=== PATIENT | female | born 1955 | race Caucasian/White ===

== ENCOUNTER 2018-03-07 11:13 | Inpatient (IN) | payer MEDICARE, OTHER ==
[2018-03-07 12:34] LABS: ADD MAN DIFF? NO
[2018-03-07] MEDS: ONDANSETRON 4 MG INJ IV ×2 (12:34→14:30)
[2018-03-07] MEDS: SOD CHLORIDE 0.9% 1,000 ML IV ×2 (12:35→16:41)
[2018-03-07] MEDS: HYDROmorphONE 1 MG/ML SYG IV ×2 (12:35→14:30)
[2018-03-07 12:38] LABS: BASOPHIL # 0.1 10^3/ul (0.0-0.1); BASOPHILS % 0.5 % (0.0-2.0); EOSINOPHILS # 0.2 10^3/ul (0.0-0.5); EOSINOPHILS % 1.7 % (0.0-7.0); HEMATOCRIT 34.7 % (37.0-47.0); HEMOGLOBIN 10.6 g/dl (12.0-16.0); LYMPHOCYTES # 2.2 10^3/ul (0.8-2.9); LYMPHOCYTES % 22.6 % (15.0-51.0); MEAN CORPUSCULAR HEMOGLOBIN 29.5 pg (29.0-33.0); MEAN CORPUSCULAR HGB CONC 30.5 g/dl (32.0-37.0); MEAN CORPUSCULAR VOLUME 96.7 fl (82.0-101.0); MEAN PLATELET VOLUME 9.6 fl (7.4-10.4); MONOCYTE # 0.8 10^3/ul (0.3-0.9); MONOCYTES % 8.1 % (0.0-11.0); NEUTROPHIL # 6.3 10^3/ul (1.6-7.5); NEUTROPHILS % 64.7 % (39.0-77.0); PLATELET COUNT 395 10^3/UL (140-415); RED BLOOD COUNT 3.59 10^6/ul (4.20-5.40); RED CELL DISTRIBUTION WIDTH 13.7 % (11.5-14.5)
[2018-03-07 12:38] LABS: WHITE BLOOD COUNT 9.7 10^3/ul (4.8-10.8)
[2018-03-07 13:11] LABS: ALANINE AMINOTRANSFERASE 45 IU/L (13-69); ALBUMIN 3.7 g/dl (3.3-4.9); ALBUMIN/GLOBULIN RATIO 0.92; ALKALINE PHOSPHATASE 139 IU/L (42-121); ASPARTATE AMINO TRANSFERASE 58 IU/L (15-46); BILIRUBIN,INDIRECT 0.2 mg/dl (0-1.1); BILIRUBIN,TOTAL 0.2 mg/dl (0.2-1.3); BLOOD UREA NITROGEN 15 mg/dl (7-20); CALCIUM 9.5 mg/dl (8.4-10.2); CARBON DIOXIDE 21 mmol/L (21-31); CHLORIDE 104 mmol/L (97-110); CREATININE 3.92 mg/dl (0.44-1.00); GLUCOSE 68 mg/dl (70-220); POTASSIUM 4.3 mmol/L (3.5-5.1); SODIUM 140 mmol/L (135-144); TOTAL PROTEIN 7.7 g/dl (6.1-8.1)
[2018-03-07] MEDS ORDERED: ACETAMINOPHEN 325 MG TAB PO (14:00)
[2018-03-07] MEDS ORDERED: ONDANSETRON 4 MG INJ IV ×2 (14:00→15:30)
[2018-03-07 14:18] LABS: TROPONIN-I < 0.012 ng/ml (0.000-0.120)
[2018-03-07 14:21] LABS: B-TYPE NATRIURETIC PEPTIDE 3820 PG/ML (0-125)
[2018-03-07] MEDS: HYDROCODONE/APAP (10/325) TAB PO (14:38)
[2018-03-07] MEDS ORDERED: NACL 0.9% 3 ML SYG IV (15:30)
[2018-03-07] MEDS ORDERED: DOCUSATE SODIUM 100 MG CAP PO (15:30)
[2018-03-07] MEDS ORDERED: MAGNESIUM HYDROXIDE 30ML CUP PO (15:30)
[2018-03-07] MEDS ORDERED: LORAZEPAM 1 MG TAB PO (15:30)
[2018-03-07] MEDS: ALBUTEROL HFA 8 GM INHALER INH ×2 (17:00→21:52)
[2018-03-07] MEDS: GABAPENTIN 400 MG CAP PO ×2 (18:27→20:35)
[2018-03-07 20:13] LABS: ADD UMIC YES; UR AMORPHOUS CRYSTAL FEW /HPF (NONE SEEN); UR ASCORBIC ACID NEGATIVE (NEGATIVE); UR BILIRUBIN (Dip) NEGATIVE (NEGATIVE); UR BLOOD (Dip) NEGATIVE (NEGATIVE); UR CLARITY CLOUDY (CLEAR); UR COLOR YELLOW (YELLOW); UR GLUCOSE (Dip) NEGATIVE (NEGATIVE); UR KETONES (Dip) NEGATIVE (NEGATIVE); UR LEUKOCYTE ESTERASE (Dip) NEGATIVE Leu/ul (NEGATIVE); UR MUCUS FEW /HPF (NONE SEEN); UR NITRITE (Dip) NEGATIVE (NEGATIVE); UR RBC 3 /HPF (0-5); UR SPECIFIC GRAVITY (Dip) 1.011 (1.003-1.030); UR TOTAL PROTEIN (Dip) NEGATIVE (NEGATIVE); UR UROBILINOGEN (Dip) NEGATIVE (NEGATIVE); UR WBC 4 /HPF (0-5)
[2018-03-07] MEDS: ATORVASTATIN 40 MG TAB PO (20:36)
[2018-03-07] MEDS: HEPARIN 5,000 UNIT/0.5 ML VIAL SC (20:40)
[2018-03-07] MEDS: HYDROCODONE/APAP (5/325) TAB PO (20:48)
[2018-03-08] MEDS: ALBUTEROL HFA 8 GM INHALER INH ×3 (00:15→21:29)
[2018-03-08] MEDS: SOD CHLORIDE 0.9% 1,000 ML IV ×3 (03:11→16:28)
[2018-03-08] MEDS: PANTOPRAZOLE (EC) 40 MG TAB PO (05:58)
[2018-03-08] MEDS: HYDROCODONE/APAP (5/325) TAB PO ×3 (07:22→21:59)
[2018-03-08 08:54] LABS: ADD MAN DIFF? NO
[2018-03-08 08:57] LABS: BASOPHILS % 0.6 % (0.0-2.0); EOSINOPHILS # 0.3 10^3/ul (0.0-0.5); EOSINOPHILS % 4.8 % (0.0-7.0); HEMATOCRIT 28.9 % (37.0-47.0); HEMOGLOBIN 8.7 g/dl (12.0-16.0); LYMPHOCYTES # 2.7 10^3/ul (0.8-2.9); LYMPHOCYTES % 39.4 % (15.0-51.0); MEAN CORPUSCULAR HEMOGLOBIN 29.2 pg (29.0-33.0); MEAN CORPUSCULAR HGB CONC 30.1 g/dl (32.0-37.0); MEAN PLATELET VOLUME 9.9 fl (7.4-10.4); MONOCYTE # 0.8 10^3/ul (0.3-0.9); MONOCYTES % 10.9 % (0.0-11.0); NEUTROPHIL # 2.9 10^3/ul (1.6-7.5); NEUTROPHILS % 41.8 % (39.0-77.0); PLATELET COUNT 344 10^3/UL (140-415); RED BLOOD COUNT 2.98 10^6/ul (4.20-5.40); RED CELL DISTRIBUTION WIDTH 14.3 % (11.5-14.5)
[2018-03-08 08:57] LABS: WHITE BLOOD COUNT 6.9 10^3/ul (4.8-10.8)
[2018-03-08 09:10] LABS: ANION GAP 15 (5-13)
[2018-03-08 09:14] LABS: HEMOGLOBIN A1C 7.5 % (0-5.9)
[2018-03-08 09:23] LABS: ALANINE AMINOTRANSFERASE 46 IU/L (13-69); ALBUMIN 2.9 g/dl (3.3-4.9); ALKALINE PHOSPHATASE 100 IU/L (42-121); ANION GAP 9 (5-13); ASPARTATE AMINO TRANSFERASE 50 IU/L (15-46); BILIRUBIN,INDIRECT 0.2 mg/dl (0-1.1); BILIRUBIN,TOTAL 0.2 mg/dl (0.2-1.3); BLOOD UREA NITROGEN 19 mg/dl (7-20); CALCIUM 8.3 mg/dl (8.4-10.2); CARBON DIOXIDE 24 mmol/L (21-31); CHLORIDE 106 mmol/L (97-110); CREATININE 3.97 mg/dl (0.44-1.00); GLUCOSE 98 mg/dl (70-220); MAGNESIUM 1.9 mg/dl (1.7-2.5); POTASSIUM 4.5 mmol/L (3.5-5.1); SODIUM 139 mmol/L (135-144); TOTAL PROTEIN 6.1 g/dl (6.1-8.1)
[2018-03-08] MEDS: HEPARIN 5,000 UNIT/0.5 ML VIAL SC (09:43)
[2018-03-08] MEDS: GABAPENTIN 400 MG CAP PO ×4 (09:45→21:30)
[2018-03-08] MEDS: METOPROLOL (XL) 25 MG TAB PO (09:49)
[2018-03-08] MEDS: DONEPEZIL 10 MG TAB PO (09:50)
[2018-03-08] MEDS: morphine 2 MG INJ IV (09:50)
[2018-03-08 16:47] LABS: ADD UMIC NO; UR ASCORBIC ACID NEGATIVE (NEGATIVE); UR BACTERIA FEW /HPF (NONE SEEN); UR BILIRUBIN (Dip) NEGATIVE (NEGATIVE); UR BLOOD (Dip) NEGATIVE (NEGATIVE); UR CLARITY SLIGHTLY CLOUDY (CLEAR); UR COLOR YELLOW (YELLOW); UR GLUCOSE (Dip) NEGATIVE (NEGATIVE); UR KETONES (Dip) NEGATIVE (NEGATIVE); UR LEUKOCYTE ESTERASE (Dip) NEGATIVE Leu/ul (NEGATIVE); UR MUCUS FEW /HPF (NONE SEEN); UR NITRITE (Dip) NEGATIVE (NEGATIVE); UR RBC 1 /HPF (0-5); UR SPECIFIC GRAVITY (Dip) 1.013 (1.003-1.030); UR SQUAMOUS EPITHELIAL CELL FEW /HPF (FEW); UR TOTAL PROTEIN (Dip) NEGATIVE (NEGATIVE); UR UROBILINOGEN (Dip) NEGATIVE (NEGATIVE); UR WBC 4 /HPF (0-5)
[2018-03-08 16:52] LABS: CREATININE,URINE RANDOM 141.62 mg/dl (20-320)
[2018-03-08 16:52] LABS: SODIUM,URINE RANDOM 82 mmol/L (30-90)
[2018-03-08 18:54] LABS: CREATINE KINASE 71 IU/L (23-200)
[2018-03-08] MEDS ORDERED: HEPARIN 5,000 UNIT/0.5 ML VIAL (20:55)
[2018-03-08] MEDS: ATORVASTATIN 40 MG TAB PO (21:29)
[2018-03-08] MEDS: HEPARIN SODIUM 5,000 UNIT/ML VIAL SC (21:34)
[2018-03-09] MEDS: SOD CHLORIDE 0.9% 1,000 ML IV ×4 (00:36→20:31)
[2018-03-09] MEDS: ALBUTEROL HFA 8 GM INHALER INH ×6 (01:54→20:25)
[2018-03-09] MEDS: PANTOPRAZOLE (EC) 40 MG TAB PO (05:36)
[2018-03-09] MEDS: HYDROCODONE/APAP (5/325) TAB PO ×3 (05:37→20:28)
[2018-03-09 05:46] LABS: ADD MAN DIFF? NO
[2018-03-09 05:54] LABS: WHITE BLOOD COUNT 6.8 10^3/ul (4.8-10.8)
[2018-03-09 05:54] LABS: BASOPHIL # 0.1 10^3/ul (0.0-0.1); BASOPHILS % 0.7 % (0.0-2.0); EOSINOPHILS # 0.4 10^3/ul (0.0-0.5); EOSINOPHILS % 5.9 % (0.0-7.0); HEMATOCRIT 29.2 % (37.0-47.0); HEMOGLOBIN 8.8 g/dl (12.0-16.0); LYMPHOCYTES # 2.4 10^3/ul (0.8-2.9); LYMPHOCYTES % 35.6 % (15.0-51.0); MEAN CORPUSCULAR HGB CONC 30.1 g/dl (32.0-37.0); MEAN CORPUSCULAR VOLUME 96.4 fl (82.0-101.0); MEAN PLATELET VOLUME 9.9 fl (7.4-10.4); MONOCYTE # 0.5 10^3/ul (0.3-0.9); NEUTROPHIL # 3.2 10^3/ul (1.6-7.5); NEUTROPHILS % 47.4 % (39.0-77.0); PLATELET COUNT 350 10^3/UL (140-415); RED BLOOD COUNT 3.03 10^6/ul (4.20-5.40); RED CELL DISTRIBUTION WIDTH 14.1 % (11.5-14.5)
[2018-03-09 06:20] LABS: ANION GAP 9 (5-13); BLOOD UREA NITROGEN 23 mg/dl (7-20); CALCIUM 8.5 mg/dl (8.4-10.2); CARBON DIOXIDE 24 mmol/L (21-31); CHLORIDE 106 mmol/L (97-110); CREATININE 2.81 mg/dl (0.44-1.00); GLUCOSE 166 mg/dl (70-220); PHOSPHORUS 4.8 mg/dl (2.5-4.9); POTASSIUM 4.7 mmol/L (3.5-5.1); SODIUM 139 mmol/L (135-144)
[2018-03-09] MEDS ORDERED: HEPARIN 5,000 UNIT/0.5 ML VIAL ×2 (09:15→20:20)
[2018-03-09] MEDS: morphine 2 MG INJ IV ×2 (09:34→17:05)
[2018-03-09] MEDS: DONEPEZIL 10 MG TAB PO (09:43)
[2018-03-09] MEDS: GABAPENTIN 400 MG CAP PO ×4 (09:43→20:28)
[2018-03-09] MEDS: METOPROLOL (XL) 25 MG TAB PO (09:44)
[2018-03-09] MEDS: HEPARIN SODIUM 5,000 UNIT/ML VIAL SC ×2 (09:49→20:34)
[2018-03-09] MEDS ORDERED: GLUCOSE GEL 15 GRAM TUBE BUCCAL (13:30)
[2018-03-09] MEDS ORDERED: GLUCAGON 1 MG INJ IM (13:30)
[2018-03-09] MEDS ORDERED: DEXTROSE 50% 50 ML SYRINGE IV ×2 (13:30)
[2018-03-09] MEDS ORDERED: GLUCOSE GEL 15 GRAM TUBE PO ×2 (13:30)
[2018-03-09 13:32] LABS: OCCULT BLOOD STOOL NEGATIVE (NEGATIVE)
[2018-03-09] MEDS: INSULIN ASPART [NOVOLOG] 3 ML PEN SC ×2 (17:47→20:36)
[2018-03-09] MEDS: ATORVASTATIN 40 MG TAB PO (20:28)
[2018-03-10] MEDS: ALBUTEROL HFA 8 GM INHALER INH ×6 (00:56→20:17)
[2018-03-10] MEDS: morphine 2 MG INJ IV ×4 (00:59→22:18)
[2018-03-10] MEDS: ACCU-CHEK XX (02:00)
[2018-03-10] MEDS: HYDROCODONE/APAP (5/325) TAB PO ×2 (02:42→11:48)
[2018-03-10] MEDS: ZOLPIDEM 5 MG TAB PO (02:44)
[2018-03-10] MEDS: PANTOPRAZOLE (EC) 40 MG TAB PO (06:09)
[2018-03-10 06:11] LABS: ADD MAN DIFF? NO
[2018-03-10 06:15] LABS: BASOPHILS % 0.6 % (0.0-2.0); EOSINOPHILS # 0.3 10^3/ul (0.0-0.5); EOSINOPHILS % 5.3 % (0.0-7.0); HEMATOCRIT 28.3 % (37.0-47.0); HEMOGLOBIN 8.6 g/dl (12.0-16.0); LYMPHOCYTES # 2.5 10^3/ul (0.8-2.9); LYMPHOCYTES % 40.1 % (15.0-51.0); MEAN CORPUSCULAR HEMOGLOBIN 29.2 pg (29.0-33.0); MEAN CORPUSCULAR HGB CONC 30.4 g/dl (32.0-37.0); MEAN CORPUSCULAR VOLUME 95.9 fl (82.0-101.0); MEAN PLATELET VOLUME 9.7 fl (7.4-10.4); MONOCYTE # 0.7 10^3/ul (0.3-0.9); MONOCYTES % 10.7 % (0.0-11.0); NEUTROPHIL # 2.6 10^3/ul (1.6-7.5); NEUTROPHILS % 41.7 % (39.0-77.0); PLATELET COUNT 354 10^3/UL (140-415); RED BLOOD COUNT 2.95 10^6/ul (4.20-5.40); RED CELL DISTRIBUTION WIDTH 13.7 % (11.5-14.5)
[2018-03-10 06:15] LABS: WHITE BLOOD COUNT 6.3 10^3/ul (4.8-10.8)
[2018-03-10 06:30] LABS: ANION GAP 2 (5-13); BLOOD UREA NITROGEN 17 mg/dl (7-20); CALCIUM 8.7 mg/dl (8.4-10.2); CARBON DIOXIDE 29 mmol/L (21-31); CHLORIDE 107 mmol/L (97-110); CREATININE 1.46 mg/dl (0.44-1.00); GLUCOSE 177 mg/dl (70-220); MAGNESIUM 1.6 mg/dl (1.7-2.5); PHOSPHORUS 3.3 mg/dl (2.5-4.9); POTASSIUM 5.1 mmol/L (3.5-5.1); SODIUM 138 mmol/L (135-144)
[2018-03-10] MEDS ORDERED: HEPARIN 5,000 UNIT/0.5 ML VIAL ×2 (08:40→20:01)
[2018-03-10] MEDS: METOPROLOL (XL) 25 MG TAB PO (08:46)
[2018-03-10] MEDS: DONEPEZIL 10 MG TAB PO (08:46)
[2018-03-10] MEDS: GABAPENTIN 400 MG CAP PO ×4 (08:46→20:17)
[2018-03-10] MEDS: HEPARIN SODIUM 5,000 UNIT/ML VIAL SC ×2 (08:48→20:27)
[2018-03-10] MEDS: INSULIN ASPART [NOVOLOG] 3 ML PEN SC ×4 (08:48→20:27)
[2018-03-10] MEDS ORDERED: MAGNESIUM SULFATE 2 GM/50 ML 50 ML IVPB (09:00)
[2018-03-10] MEDS: MAGNESIUM SULFATE 2 GM/50 ML 50 ML IVPB (11:17)
[2018-03-10] MEDS: SOD CHLORIDE 0.9% 1,000 ML IV ×2 (13:46→19:10)
[2018-03-10] MEDS: TRIAMCINOLONE ACET 0.1% 15 GM CR TOP ×2 (15:10→20:16)
[2018-03-10] MEDS: ACETAMINOPHEN 325 MG TAB PO (15:40)
[2018-03-10] MEDS: ATORVASTATIN 40 MG TAB PO (20:17)
[2018-03-10] MEDS: INSULIN GLARGINE [LANTus] (100 UNITS/ML) SYG SC (20:28)
[2018-03-11] MEDS: ALBUTEROL HFA 8 GM INHALER INH ×6 (01:19→21:13)
[2018-03-11] MEDS: ACCU-CHEK XX (01:25)
[2018-03-11] MEDS: ZOLPIDEM 5 MG TAB PO (02:16)
[2018-03-11] MEDS: morphine 2 MG INJ IV ×2 (04:31→21:18)
[2018-03-11] MEDS: PANTOPRAZOLE (EC) 40 MG TAB PO (05:21)
[2018-03-11 06:08] LABS: ADD MAN DIFF? NO
[2018-03-11 07:01] LABS: ANION GAP 10 (5-13); BLOOD UREA NITROGEN 14 mg/dl (7-20); CALCIUM 9.1 mg/dl (8.4-10.2); CARBON DIOXIDE 23 mmol/L (21-31); CHLORIDE 104 mmol/L (97-110); GLUCOSE 244 mg/dl (70-220); MAGNESIUM 1.8 mg/dl (1.7-2.5); PHOSPHORUS 3.6 mg/dl (2.5-4.9); POTASSIUM 5.5 mmol/L (3.5-5.1); SODIUM 137 mmol/L (135-144)
[2018-03-11 08:23] LABS: BASOPHIL # 0.1 10^3/ul (0.0-0.1); BASOPHILS % 0.7 % (0.0-2.0); EOSINOPHILS # 0.4 10^3/ul (0.0-0.5); EOSINOPHILS % 4.7 % (0.0-7.0); HEMATOCRIT 29.7 % (37.0-47.0); HEMOGLOBIN 9.2 g/dl (12.0-16.0); LYMPHOCYTES # 2.5 10^3/ul (0.8-2.9); LYMPHOCYTES % 32.2 % (15.0-51.0); MEAN CORPUSCULAR HEMOGLOBIN 29.4 pg (29.0-33.0); MEAN CORPUSCULAR VOLUME 94.9 fl (82.0-101.0); MEAN PLATELET VOLUME 9.8 fl (7.4-10.4); MONOCYTE # 0.7 10^3/ul (0.3-0.9); MONOCYTES % 8.5 % (0.0-11.0); NEUTROPHILS % 52.7 % (39.0-77.0); PLATELET COUNT 361 10^3/UL (140-415); RED BLOOD COUNT 3.13 10^6/ul (4.20-5.40); RED CELL DISTRIBUTION WIDTH 13.7 % (11.5-14.5)
[2018-03-11 08:23] LABS: WHITE BLOOD COUNT 7.6 10^3/ul (4.8-10.8)
[2018-03-11] MEDS: INSULIN ASPART [NOVOLOG] 3 ML PEN SC ×4 (08:38→21:10)
[2018-03-11] MEDS ORDERED: HEPARIN 5,000 UNIT/0.5 ML VIAL ×2 (08:40→20:17)
[2018-03-11] MEDS: DONEPEZIL 10 MG TAB PO (08:46)
[2018-03-11] MEDS: GABAPENTIN 400 MG CAP PO ×4 (08:47→21:11)
[2018-03-11] MEDS: TRIAMCINOLONE ACET 0.1% 15 GM CR TOP ×2 (08:50→21:13)
[2018-03-11] MEDS: METOPROLOL (XL) 25 MG TAB PO (08:50)
[2018-03-11] MEDS: HEPARIN SODIUM 5,000 UNIT/ML VIAL SC ×2 (08:53→21:11)
[2018-03-11] MEDS: HYDROCODONE/APAP (5/325) TAB PO ×2 (11:28→18:25)
[2018-03-11] MEDS ORDERED: INSULIN GLARGINE [LANTus] (100 UNITS/ML) SYG SC (20:00)
[2018-03-11] MEDS: INSULIN GLARGINE [LANTus] (100 UNITS/ML) SYG SC (21:10)
[2018-03-11] MEDS: ATORVASTATIN 40 MG TAB PO (21:11)
[2018-03-11] MEDS: ACETAMINOPHEN 325 MG TAB PO (21:12)
[2018-03-12] MEDS: ALBUTEROL HFA 8 GM INHALER INH ×5 (01:00→17:50)
[2018-03-12] MEDS: ACCU-CHEK XX (01:37)
[2018-03-12] MEDS: HYDROCODONE/APAP (5/325) TAB PO ×3 (01:37→17:49)
[2018-03-12] MEDS: ACETAMINOPHEN 325 MG TAB PO (05:02)
[2018-03-12] MEDS: PANTOPRAZOLE (EC) 40 MG TAB PO (06:12)
[2018-03-12 07:04] LABS: ANION GAP 8 (5-13); BLOOD UREA NITROGEN 16 mg/dl (7-20); CALCIUM 9.1 mg/dl (8.4-10.2); CARBON DIOXIDE 29 mmol/L (21-31); CHLORIDE 102 mmol/L (97-110); CREATININE 1.09 mg/dl (0.44-1.00); GLUCOSE 243 mg/dl (70-220); MAGNESIUM 1.6 mg/dl (1.7-2.5); PHOSPHORUS 4.4 mg/dl (2.5-4.9); POTASSIUM 4.6 mmol/L (3.5-5.1); SODIUM 139 mmol/L (135-144)
[2018-03-12] MEDS ORDERED: HEPARIN 5,000 UNIT/0.5 ML VIAL (08:22)
[2018-03-12] MEDS: GABAPENTIN 400 MG CAP PO ×3 (08:31→17:49)
[2018-03-12] MEDS: METOPROLOL (XL) 25 MG TAB PO (08:31)
[2018-03-12] MEDS: DONEPEZIL 10 MG TAB PO (08:31)
[2018-03-12] MEDS: LINAGLIPTIN 5 MG TABLET PO (08:31)
[2018-03-12] MEDS: HEPARIN SODIUM 5,000 UNIT/ML VIAL SC (09:18)
[2018-03-12] MEDS: INSULIN ASPART [NOVOLOG] 3 ML PEN SC ×3 (09:18→18:10)
[2018-03-12] MEDS: MAGNESIUM SULFATE 2 GM/50 ML 50 ML IVPB (10:36)
[2018-03-12] MEDS: TRIAMCINOLONE ACET 0.1% 15 GM CR TOP (10:37)
[2018-03-12 13:52] LABS: CREATININE, RANDOM URINE 134 mg/dL (20-275); MICROALBUMIN 0.7 mg/dL; MICROALBUMIN/CREATININE RATIO 5 (<30)
[2018-03-13] MEDS ORDERED: glipiZIDE 5 MG TAB PO (07:00)
== END 2018-03-12 18:40 | DRG 683 ==
LOC: 2NE 03-10 01:27 → E/R 11:13 → 2NE 14:00
DX: N17.0 Acute kidney failure with tubular necrosis (principal); Z68.41 Body mass index [BMI] 40.0-44.9, adult; G93.40 Encephalopathy, unspecified; T36.95XA Adverse effect of unspecified systemic antibiotic, initial encounter; W19.XXXA Unspecified fall, initial encounter; E66.01 Morbid (severe) obesity due to excess calories; E11.9 Type 2 diabetes mellitus without complications; I10 Essential (primary) hypertension; M19.90 Unspecified osteoarthritis, unspecified site; M54.5 Low back pain; E78.5 Hyperlipidemia, unspecified; G89.4 Chronic pain syndrome; M43.16 Spondylolisthesis, lumbar region; M48.061 Spinal stenosis, lumbar region without neurogenic claudication; M51.26 Other intervertebral disc displacement, lumbar region; K57.30 Diverticulosis of large intestine without perforation or abscess without bleeding; F03.90 Unspecified dementia, unspecified severity, without behavioral disturbance, psychotic disturbance, mood disturbance, and anxiety; G47.33 Obstructive sleep apnea (adult) (pediatric); D64.9 Anemia, unspecified; E87.5 Hyperkalemia; E83.42 Hypomagnesemia; Z91.81 History of falling; N14.1 Nephropathy induced by other drugs, medicaments and biological substances
CPT/HCPCS: 36415; 71045; 72131; 76775; 80048; 80053; 81001; 81003; 82043; 82270; 82550; 82962; 83036; 83735; 83880; 84100; 84132; 84155; 84300; 84443; 84484; 85025; 87086; 89190; 96374; 96375; 97162; 99285-25